=== PATIENT | female | born 2000 | race Caucasian/White ===

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

== ENCOUNTER 2022-09-12 18:59 | Emergency (ER) | payer SELFPAY ==
[~2022-09-12] VITALS: Ht 157.5 cm; Wt 70.1 kg
[~2022-09-12 18:59] MED LIST changes: +IBUP80TA PO; +OXYC1TAB23 PO
[2022-09-12 19:00] VITALS: BP 127/73
[2022-09-12 19:40] LABS: APPEARANCE, URINE MANUAL CLEAR (CLEAR); COLOR, URINE MANUAL YELLOW (YELLOW)
[2022-09-12 19:41] LABS: BILIRUBIN, URINE MANUAL NEGATIVE (NEGATIVE); GLUCOSE, URINE (UA) MANUAL NEGATIVE (NEGATIVE); KETONE, URINE MANUAL NEGATIVE (NEGATIVE); NITRITE, URINE MANUAL POSITIVE (NEGATIVE); PROTEIN, URINE MANUAL NEGATIVE (NEGATIVE); UROBILINOGEN, URINE MANUAL NORMAL (NORMAL)
[2022-09-12 19:42] LABS: BLOOD URINE MANUAL TRACE (NEGATIVE); LEUKOCYTE ESTERASE, URINE MAN POSITIVE (NEGATIVE)
[2022-09-12 19:49] LABS: BACTERIA, URINE LARGE AMOUNT; HYALINE CAST, URINE NONE SEEN /lpf (0-1); SQUAMOUS EPITHELIAL CELL URINE SMALL AMOUNT /hpf (SMALL AMT); WBC, URINE 20-30 /hpf (0-3)
[2022-09-12 19:51] LABS: TRANSITIONAL EPI CELLS, URINE SMALL AMOUNT /hpf
== END 2022-09-12 22:30 | disposition left against medical advice (07) ==
LOC: M ED 18:59
DX: Z53.21 Procedure and treatment not carried out due to patient leaving prior to being seen by health care provider (principal)

== ENCOUNTER 2023-04-05 15:06 | Emergency (ER) | payer SELFPAY ==
[~2023-04-05] VITALS: Ht 157.5 cm; Wt 79.1 kg
[2023-04-05 15:07] VITALS: BP 136/77; TEMP 97.3; O2SAT 98
== END 2023-04-05 16:00 | disposition left against medical advice (07) ==
LOC: M ED 15:06
DX: Z53.21 Procedure and treatment not carried out due to patient leaving prior to being seen by health care provider (principal)

== ENCOUNTER 2023-04-06 16:32 | Emergency (ER) | payer SELFPAY ==
[~2023-04-06] VITALS: Ht 157.5 cm; Wt 77.2 kg
[2023-04-06 16:34] VITALS: BP 124/75; TEMP 99.1
== END 2023-04-06 17:14 | disposition left against medical advice (07) ==
LOC: M ED 16:32
DX: Z53.21 Procedure and treatment not carried out due to patient leaving prior to being seen by health care provider (principal)

== ENCOUNTER 2023-04-08 11:12 | Observation (INO) | payer MEDICAID, SELFPAY ==
[~2023-04-08] VITALS: Ht 157.5 cm; Wt 78.0 kg
[2023-04-08 12:43] LABS: BASO # 0.1 10^3/uL (0.0-0.2); BASO % 0.5 % (0.0-1.0); EOS # 0.1 10^3/uL (0.0-0.5); EOS % 0.8 % (0.0-3.0); HEMATOCRIT 36.4 % (36.0-47.0); HEMOGLOBIN 12.3 g/dl (12.0-15.5); LYMPH # 1.7 10^3/uL (1.5-5.0); LYMPH % 11.6 % (24.0-44.0); MEAN CORPUSCULAR HEMOGLOBIN 30.1 pg (27.0-33.0); MEAN CORPUSCULAR HGB CONC 33.8 g/dl (32.0-36.5); MONO # 1.4 10^3/uL (0.0-0.8); MONO % 9.8 % (2.0-8.0); NEUTROPHILS # 11.1 10^3/uL (1.5-8.5); NEUTROPHILS % 76.6 % (36.0-66.0); PLATELET COUNT, AUTOMATED 229 10^3/uL (150-450); RED BLOOD COUNT 4.09 10^6/uL (4.00-5.40); WHITE BLOOD COUNT 14.4 10^3/uL (4.0-10.0)
[2023-04-08 12:55] LABS: INR 1.05; PROTHROMBIN TIME 13.4 SECONDS (12.5-14.5)
[2023-04-08] MEDS ORDERED: NS 1,000 ML IV ONE ×2 (12:55→15:05)
[2023-04-08 12:56] LABS: PARTIAL THROMBOPLASTIN TIME 25.8 SECONDS (24.8-34.2)
[2023-04-08 13:13] LABS: CK-MB VALUE MASS < 1.0 NG/ML (<3.6)
[2023-04-08 13:15] LABS: ALKALINE PHOSPHATASE 103 U/L (46-116); ALT/SGPT < 9 U/L (7.0-40); AST/SGOT < 8 U/L (<34); BILIRUBIN,DIRECT < 0.1 MG/DL (<0.4); BILIRUBIN,TOTAL 0.3 MG/DL (0.3-1.2); BLOOD UREA NITROGEN 8 MG/DL (9-23); CALCIUM LEVEL 9.1 MG/DL (8.5-10.1); CARBON DIOXIDE LEVEL 22 MMOL/L (20-31); CHLORIDE LEVEL 107 MMOL/L (98-107); CREATININE FOR GFR 0.43 MG/DL (0.55-1.30); GLOMERULAR FILTRATION RATE > 60.0 (>60); GLUCOSE, FASTING 109 MG/DL (60-100); MAGNESIUM LEVEL 1.7 MG/DL (1.8-2.4); POTASSIUM SERUM 3.7 MMOL/L (3.5-5.1); SODIUM LEVEL 139 MMOL/L (136-145); TOTAL PROTEIN 6.6 G/DL (5.7-8.2)
[2023-04-08 13:17] LABS: THYROID STIMULATING HORMONE 2.422 uIU/ML (0.55-4.78)
[2023-04-08 13:20] LABS: CPK CREATINE PHOSPHOKINASE 25 U/L (34-145); URIC ACID 4.9 MG/DL (3.1-7.8)
[2023-04-08] MEDS ORDERED: LIDOCAINE 2% 5ML JELLY UROJET TOP ONE (13:30)
[2023-04-08] MEDS ORDERED: MAG SULF 1GM/100ML (MAG RUN) 1 GM in IV 1 EA IV ONE (13:30)
[2023-04-08 14:20] LABS: CK-MB VALUE MASS < 1.0 NG/ML (<3.6)
[2023-04-08 14:23] LABS: CPK CREATINE PHOSPHOKINASE 19 U/L (34-145); MB/CK RELATIVE INDEX 5.26 (< OR =4)
[2023-04-08] MEDS ORDERED: cefTRIAXone SOD 1 GM in D5W MINI-BAG PLUS 50 ML IV ONE (14:45)
[2023-04-08] MEDS ORDERED: MED REC IN PROGRESS XX SCH (16:05)
[2023-04-08] MEDS ORDERED: HOME MED LIST COMPLETE! XX SCH (16:15)
[2023-04-08 17:05] LABS: GC DNA AMPLIFICATION NEGATIVE (NEGATIVE)
[2023-04-08] MEDS ORDERED: cefTRIAXone SOD 1GM VIAL IM SCH (17:10)
[2023-04-08] MEDS ORDERED: ACETAMINOPHEN TAB 650MG DOSE (2X325MG) PO PRN (17:10)
[2023-04-08] MEDS ORDERED: ONDANSETRON 4MG 2ML VIAL IV PRN (19:20)
[2023-04-08 20:42] VITALS: BP 115/68; TEMP 98.6; O2SAT 100
[2023-04-09] VITALS: BP 144/83; TEMP 96.8; O2SAT 97
[2023-04-09 04:50] VITALS: BP 118/75; TEMP 98.9; O2SAT 98
[2023-04-09] MEDS ORDERED: HEPARIN SOD (PORCINE) 5000UNITS/ML 1ML VIAL/SYRINGE SQ SCH (06:00)
[2023-04-09 07:45] LABS: BASO # 0.1 10^3/uL (0.0-0.2); BASO % 0.6 % (0.0-1.0); EOS # 0.2 10^3/uL (0.0-0.5); EOS % 2.4 % (0.0-3.0); HEMATOCRIT 32.2 % (36.0-47.0); HEMOGLOBIN 10.9 g/dl (12.0-15.5); LYMPH % 21.2 % (24.0-44.0); MEAN CORPUSCULAR HEMOGLOBIN 29.9 pg (27.0-33.0); MEAN CORPUSCULAR HGB CONC 33.9 g/dl (32.0-36.5); MEAN CORPUSCULAR VOLUME 88.5 fl (80.0-96.0); MONO # 1.2 10^3/uL (0.0-0.8); NEUTROPHILS # 5.9 10^3/uL (1.5-8.5); NEUTROPHILS % 62.2 % (36.0-66.0); PLATELET COUNT, AUTOMATED 217 10^3/uL (150-450); RED BLOOD COUNT 3.64 10^6/uL (4.00-5.40); WHITE BLOOD COUNT 9.4 10^3/uL (4.0-10.0)
[2023-04-09 08:25] LABS: ALBUMIN 2.4 G/DL (3.2-5.2); ALKALINE PHOSPHATASE 92 U/L (46-116); ALT/SGPT < 9 U/L (7.0-40); AST/SGOT < 8 U/L (<34); BILIRUBIN,TOTAL 0.3 MG/DL (0.3-1.2); BLOOD UREA NITROGEN 5 MG/DL (9-23); CALCIUM LEVEL 8.3 MG/DL (8.5-10.1); CARBON DIOXIDE LEVEL 20 MMOL/L (20-31); CHLORIDE LEVEL 110 MMOL/L (98-107); GLOMERULAR FILTRATION RATE > 60.0 (>60); GLUCOSE, FASTING 80 MG/DL (60-100); POTASSIUM SERUM 3.3 MMOL/L (3.5-5.1); SODIUM LEVEL 139 MMOL/L (136-145); TOTAL PROTEIN 5.4 G/DL (5.7-8.2)
[2023-04-09 08:30] VITALS: BP 116/76; TEMP 97; O2SAT 99
[2023-04-09 10:45] LABS: MAGNESIUM LEVEL 1.5 MG/DL (1.8-2.4)
[2023-04-09] MEDS ORDERED: POTASSIUM CHLORIDE 10MEQ SR TABLET PO ONE (11:00)
[2023-04-09] MEDS ORDERED: POTASSIUM CHLORIDE 10% LIQ 20MEQ/15ML UDC PO ONE (11:00)
[2023-04-09] MEDS ORDERED: CEFD300C41 PO (11:49)
[2023-04-09] MEDS ORDERED: MAGN500C2 PO (11:49)
[2023-04-09] MEDS ORDERED: MAG SULF 1GM/100ML (MAG RUN) 1 GM in IV 1 EA IV SCH (12:00)
[2023-04-09] MEDS ORDERED: cefTRIAXone SOD 1 GM in D5W MINI-BAG PLUS 50 ML IV SCH (15:00)
== END 2023-04-09 12:54 | disposition home or self-care (01) ==
LOC: M ED 11:12 → M ED INP 16:34 → INTOOBSV 16:34 → M PCU 20:38
PROVIDERS: ADMIT Internal Medicine; ATTEND Internal Medicine
DX: O23.32 Infections of other parts of urinary tract in pregnancy, second trimester (principal); O99.352 Diseases of the nervous system complicating pregnancy, second trimester; R55 Syncope and collapse; G25.3 Myoclonus; R25.3 Fasciculation; R41.82 Altered mental status, unspecified; O99.322 Drug use complicating pregnancy, second trimester; F12.20 Cannabis dependence, uncomplicated; Z82.49 Family history of ischemic heart disease and other diseases of the circulatory system; Z83.6 Family history of other diseases of the respiratory system; Z83.2 Family history of diseases of the blood and blood-forming organs and certain disorders involving the immune mechanism; Z87.440 Personal history of urinary (tract) infections; Z3A.18 18 weeks gestation of pregnancy
CPT/HCPCS: 36415; 71045; 76775; 76811; 80048; 80053; 80076; 81001; 82550; 82553; 83605; 83735; 83880; 84443; 84550; 85025; 85384; 85610; 85730; 86850; 86900; 86901; 87040; 87086; 87210; 87635; 87661; 87810; 87850; 93005; 93041; 94760; 96361; 96365; 96375; 99285; J0696; J2405; J3475

== ENCOUNTER → 2023-05-13 | Outpatient (CLI) | payer OTHER ==
[~2023-05-13] MED LIST changes: +CEFD300C41 PO; +MAGN500C2 PO
== END ==
LOC: M WHC 14:58
PROVIDERS: ATTEND Advanced Practice Midwife
DX: Z34.92 Encounter for supervision of normal pregnancy, unspecified, second trimester (principal)

== ENCOUNTER → 2023-06-16 | Outpatient (CLI) | payer OTHER, SELFPAY ==
[~2023-06-16] MED LIST changes: -CEFD300C41 PO; +CEFD300C42 PO
== END ==
LOC: M WHC 12:35
PROVIDERS: ATTEND Advanced Practice Midwife
DX: Z34.92 Encounter for supervision of normal pregnancy, unspecified, second trimester (principal)

== ENCOUNTER 2023-07-21 23:40 | Emergency (ER) | payer SELFPAY ==
[~2023-07-21] VITALS: Ht 157.5 cm; Wt 92.0 kg
[~2023-07-21 23:40] MED LIST changes: +CEFD1CAP9 PO; -CEFD300C42 PO
[2023-07-21 23:43] VITALS: BP 141/81; TEMP 97.9; O2SAT 97
== END 2023-07-21 23:45 | disposition admitted as inpatient to this hospital (09) ==
LOC: M ED 23:40
DX: Z53.21 Procedure and treatment not carried out due to patient leaving prior to being seen by health care provider (principal)

== ENCOUNTER 2023-11-19 06:26 | Emergency (ER) | payer SELFPAY ==
[~2023-11-19] VITALS: Ht 157.5 cm; Wt 79.6 kg
[2023-11-19] MEDS: NS 1,000 ML IV ONE (06:34)
[2023-11-19 06:58] LABS: BASO # 0.1 10^3/uL (0.0-0.2); BASO % 1.1 % (0.0-1.0); EOS # 0.2 10^3/uL (0.0-0.5); EOS % 2.5 % (0.0-3.0); HEMATOCRIT 43.7 % (36.0-47.0); HEMOGLOBIN 13.7 g/dl (12.0-15.5); LYMPH # 3.4 10^3/uL (1.5-5.0); LYMPH % 36.6 % (24.0-44.0); MEAN CORPUSCULAR HEMOGLOBIN 26.8 pg (27.0-33.0); MEAN CORPUSCULAR HGB CONC 31.4 g/dl (32.0-36.5); MEAN CORPUSCULAR VOLUME 85.5 fl (80.0-96.0); MONO # 0.8 10^3/uL (0.0-0.8); MONO % 9.1 % (2.0-8.0); NEUTROPHILS # 4.7 10^3/uL (1.5-8.5); NEUTROPHILS % 50.4 % (36.0-66.0); PLATELET COUNT, AUTOMATED 358 10^3/uL (150-450); RED BLOOD COUNT 5.11 10^6/uL (4.00-5.40); WHITE BLOOD COUNT 9.3 10^3/uL (4.0-10.0)
[2023-11-19 07:23] LABS: ALBUMIN 4.2 G/DL (3.2-5.2); ALKALINE PHOSPHATASE 110 U/L (46-116); ALT/SGPT 31 U/L (7.0-40); AST/SGOT 15 U/L (<34); BILIRUBIN,DIRECT 0.1 MG/DL (<0.4); BILIRUBIN,TOTAL 0.3 MG/DL (0.3-1.2); BLOOD UREA NITROGEN 7 MG/DL (9-23); CALCIUM LEVEL 9.6 MG/DL (8.5-10.1); CARBON DIOXIDE LEVEL 26 MMOL/L (20-31); CHLORIDE LEVEL 106 MMOL/L (98-107); CPK CREATINE PHOSPHOKINASE 103 U/L (34-145); CREATININE FOR GFR 0.55 MG/DL (0.55-1.30); GLOMERULAR FILTRATION RATE > 60.0 (>60); GLUCOSE, FASTING 96 MG/DL (60-100); POTASSIUM SERUM 3.9 MMOL/L (3.5-5.1); SALICYLATE LEVEL < 3.0 MG/DL (<30); SODIUM LEVEL 142 MMOL/L (136-145); TOTAL PROTEIN 7.8 G/DL (5.7-8.2)
[2023-11-19 07:47] LABS: HCG, SERUM QUALITATIVE NEGATIVE (NEGATIVE)
[2023-11-19] MEDS ORDERED: HOME MED LIST COMPLETE! XX SCH (10:30)
[2023-11-19 12:27] LABS: BARBITURATES URINE NEGATIVE (NEGATIVE); BENZODIAZEPINES URINE NEGATIVE (NEGATIVE); COCAINE METABOLITE URINE NEGATIVE (NEGATIVE); METHADONE URINE NEGATIVE (NEGATIVE); OPIATES URINE NEGATIVE (NEGATIVE); PHENCYCLIDINE URINE NEGATIVE (NEGATIVE)
[2023-11-19 12:31] LABS: AMPHETAMINES LEVEL URINE POSITIVE (NEGATIVE); CANNABINOIDS URINE POSITIVE (NEGATIVE)
[2023-11-19 12:48] VITALS: BP 108/68; TEMP 98.7; O2SAT 96
== END 2023-11-19 12:50 | disposition home or self-care (01) ==
LOC: EDBD 06:26 → M ED 09:26
DX: F10.120 Alcohol abuse with intoxication, uncomplicated (principal); F17.210 Nicotine dependence, cigarettes, uncomplicated; F12.10 Cannabis abuse, uncomplicated

== ENCOUNTER 2024-01-17 19:21 | Inpatient (IN) | payer SELFPAY ==
[~2024-01-17] VITALS: Ht 157.5 cm; Wt 78.5 kg
[2024-01-17 20:03] LABS: BASO # 0.1 10^3/uL (0.0-0.2); BASO % 0.5 % (0.0-1.0); EOS # 0.1 10^3/uL (0.0-0.5); EOS % 0.5 % (0.0-3.0); HEMATOCRIT 41.6 % (36.0-47.0); HEMOGLOBIN 13.4 g/dl (12.0-15.5); LYMPH # 2.2 10^3/uL (1.5-5.0); LYMPH % 12.4 % (24.0-44.0); MEAN CORPUSCULAR HEMOGLOBIN 27.1 pg (27.0-33.0); MEAN CORPUSCULAR HGB CONC 32.2 g/dl (32.0-36.5); MONO # 2.1 10^3/uL (0.0-0.8); MONO % 11.8 % (2.0-8.0); NEUTROPHILS # 13.2 10^3/uL (1.5-8.5); NEUTROPHILS % 74.4 % (36.0-66.0); PLATELET COUNT, AUTOMATED 306 10^3/uL (150-450); RED BLOOD COUNT 4.95 10^6/uL (4.00-5.40); WHITE BLOOD COUNT 17.8 10^3/uL (4.0-10.0)
[2024-01-17] MEDS: KETOROLAC 30 MG/ML 1ML VIAL IV ONE (20:16)
[2024-01-17] MEDS: NS 1,000 ML IV ONE (20:17)
[2024-01-17] MEDS: ONDANSETRON 4MG 2ML VIAL IV ONE (20:17)
[2024-01-17 20:26] LABS: ALBUMIN 3.8 G/DL (3.2-5.2); ALKALINE PHOSPHATASE 122 U/L (46-116); ALT/SGPT 16 U/L (7.0-40); AST/SGOT 25 U/L (<34); BILIRUBIN,TOTAL 0.5 MG/DL (0.3-1.2); BLOOD UREA NITROGEN 8 MG/DL (9-23); CALCIUM LEVEL 9.5 MG/DL (8.5-10.1); CARBON DIOXIDE LEVEL 25 MMOL/L (20-31); CHLORIDE LEVEL 104 MMOL/L (98-107); CREATININE FOR GFR 0.59 MG/DL (0.55-1.30); GLOMERULAR FILTRATION RATE > 60.0 (>60); GLUCOSE, FASTING 100 MG/DL (60-100); POTASSIUM SERUM 3.8 MMOL/L (3.5-5.1); SODIUM LEVEL 137 MMOL/L (136-145); TOTAL PROTEIN 7.6 G/DL (5.7-8.2)
[2024-01-17 20:30] LABS: HCG, SERUM QUALITATIVE NEGATIVE (NEGATIVE)
[2024-01-17] MEDS: cefTRIAXone SOD 1 GM in D5W MINI-BAG PLUS 50 ML IV ONE (20:34)
[2024-01-17] MEDS ORDERED: ISOVUE-370 76% 100ML VIAL As Ordered ONE (20:54)
[2024-01-17] MEDS: METOCLOPRAMIDE INJ 10MG/2ML VIAL IV ONE (22:27)
[2024-01-17] MEDS ORDERED: HOME MED LIST COMPLETE! XX SCH (23:15)
[2024-01-18] MEDS ORDERED: ONDANSETRON 4MG 2ML VIAL IV PRN
[2024-01-18] MEDS: NS 1,000 ML IV ONE ×2 (00:49→10:41)
[2024-01-18 01:30] VITALS: BP 99/58; TEMP 97.6; O2SAT 91
[2024-01-18] MEDS: ACETAMINOPHEN TAB 650MG DOSE (2X325MG) PO PRN (01:36)
[2024-01-18] MEDS ORDERED: KETOROLAC 30 MG/ML 1ML VIAL IV PRN (02:00)
[2024-01-18 04:30] VITALS: BP 96/47; TEMP 97.6; O2SAT 99
[2024-01-18 07:38] LABS: ALKALINE PHOSPHATASE 101 U/L (46-116); ALT/SGPT 19 U/L (7.0-40); AST/SGOT 19 U/L (<34); BILIRUBIN,TOTAL 0.5 MG/DL (0.3-1.2); BLOOD UREA NITROGEN 7 MG/DL (9-23); CALCIUM LEVEL 8.5 MG/DL (8.5-10.1); CARBON DIOXIDE LEVEL 26 MMOL/L (20-31); CHLORIDE LEVEL 110 MMOL/L (98-107); CREATININE FOR GFR 0.56 MG/DL (0.55-1.30); GLOMERULAR FILTRATION RATE > 60.0 (>60); GLUCOSE, FASTING 85 MG/DL (60-100); POTASSIUM SERUM 3.6 MMOL/L (3.5-5.1); PROCALCITONIN 0.07 ng/ml; SODIUM LEVEL 140 MMOL/L (136-145)
[2024-01-18] MEDS: DOCUSATE SODIUM 100MG CAPSULE PO SCH (09:00)
[2024-01-18] MEDS: cefTRIAXone SOD 2 GM in D5W MINI-BAG PLUS 50 ML IV SCH (09:13)
[2024-01-18 10:41] VITALS: BP 90/55
[2024-01-18] MEDS: MIDODRINE 5 MG TAB PO ONE (10:41)
[2024-01-18] MEDS: KETOROLAC 30 MG/ML 1ML VIAL IV ONE (10:41)
[2024-01-18 11:39] LABS: BASO # 0.1 10^3/uL (0.0-0.2); BASO % 0.5 % (0.0-1.0); EOS # 0.2 10^3/uL (0.0-0.5); EOS % 1.5 % (0.0-3.0); HEMATOCRIT 37.3 % (36.0-47.0); HEMOGLOBIN 11.6 g/dl (12.0-15.5); LYMPH # 3.3 10^3/uL (1.5-5.0); LYMPH % 21.7 % (24.0-44.0); MEAN CORPUSCULAR HEMOGLOBIN 27.3 pg (27.0-33.0); MEAN CORPUSCULAR HGB CONC 31.1 g/dl (32.0-36.5); MEAN CORPUSCULAR VOLUME 87.8 fl (80.0-96.0); MONO # 2.3 10^3/uL (0.0-0.8); MONO % 15.2 % (2.0-8.0); NEUTROPHILS # 9.1 10^3/uL (1.5-8.5); NEUTROPHILS % 60.6 % (36.0-66.0); PLATELET COUNT, AUTOMATED 261 10^3/uL (150-450); RED BLOOD COUNT 4.25 10^6/uL (4.00-5.40); WHITE BLOOD COUNT 15.1 10^3/uL (4.0-10.0)
[2024-01-18 11:54] VITALS: BP_SYST 106; BP_SYST 107; BP_SYST 116; BP_DIAS 62; BP_DIAS 66; BP_DIAS 71
[2024-01-18 12:00] VITALS: BP 116/62; TEMP 98.1; O2SAT 99
[2024-01-18 12:04] LABS: ERYTHROCYTE SEDIMENTATION RATE 42 mm/hr (0-20)
[2024-01-18 12:52] LABS: PROLACTIN 13.26 NG/ML
[2024-01-18] MEDS: ACETAMINOPHEN 500 MG TAB PO ONE (14:00)
[2024-01-18] MEDS ORDERED: LEVO1TAB40 PO (14:58)
[2024-01-18] MEDS ORDERED: PYRI1TAB5 PO (15:00)
[2024-01-18] MEDS ORDERED: MIDO10TA PO (15:00)
[2024-01-18] MEDS ORDERED: SELF1KIT MC (15:00)
[2024-01-18] MEDS ORDERED: FOSFOMYCIN TROMETHAMINE 3 GM POWDER PACKET (MONUROL) PO ONE (16:00)
[2024-01-18] MEDS ORDERED: MIDODRINE 5 MG TAB PO SCH (16:00)
== END 2024-01-18 15:03 | disposition left against medical advice (07) | DRG 720 ==
LOC: M ED 19:21 → M ED INP 23:16 → M MSPAV 01-18 01:11
PROVIDERS: ADMIT Preventive Medicine Undersea and Hyperbaric Medicine; ATTEND General Practice
DX: A41.9 Sepsis, unspecified organism (principal); N10 Acute pyelonephritis; N83.201 Unspecified ovarian cyst, right side; F41.9 Anxiety disorder, unspecified; F31.9 Bipolar disorder, unspecified; Z91.198 Patient's noncompliance with other medical treatment and regimen for other reason

== ENCOUNTER 2024-02-27 00:15 | Emergency (ER) | payer SELFPAY ==
[~2024-02-27] VITALS: Ht 162.6 cm; Wt 77.3 kg
[~2024-02-27 00:15] MED LIST changes: +LEVO1TAB40 PO; +MIDO10TA PO; +PYRI1TAB5 PO; +SELF1KIT MC
[2024-02-27 00:16] VITALS: BP 108/68; TEMP 96.8; O2SAT 100
== END 2024-02-27 02:09 | disposition left against medical advice (07) ==
LOC: M ED 00:15
DX: Z53.21 Procedure and treatment not carried out due to patient leaving prior to being seen by health care provider (principal)

== ENCOUNTER 2024-03-07 18:22 | Emergency (ER) | payer SELFPAY ==
[~2024-03-07] VITALS: Ht 157.5 cm; Wt 77.8 kg
[2024-03-07 18:23] VITALS: TEMP 97.5
[2024-03-07] MEDS: NS 1,000 ML IV ONE (19:24)
[2024-03-07 19:31] LABS: BASO # 0.1 10^3/uL (0.0-0.2); BASO % 0.7 % (0.0-1.0); EOS # 0.2 10^3/uL (0.0-0.5); EOS % 1.9 % (0.0-3.0); HEMATOCRIT 42.9 % (36.0-47.0); LYMPH # 4.1 10^3/uL (1.5-5.0); LYMPH % 33.8 % (24.0-44.0); MEAN CORPUSCULAR HEMOGLOBIN 28.4 pg (27.0-33.0); MEAN CORPUSCULAR HGB CONC 32.6 g/dl (32.0-36.5); MONO # 1.1 10^3/uL (0.0-0.8); MONO % 8.7 % (2.0-8.0); NEUTROPHILS # 6.6 10^3/uL (1.5-8.5); NEUTROPHILS % 54.6 % (36.0-66.0); PLATELET COUNT, AUTOMATED 349 10^3/uL (150-450); RED BLOOD COUNT 4.93 10^6/uL (4.00-5.40); WHITE BLOOD COUNT 12.1 10^3/uL (4.0-10.0)
[2024-03-07 19:33] LABS: BARBITURATES URINE NEGATIVE (NEGATIVE); BENZODIAZEPINES URINE NEGATIVE (NEGATIVE); COCAINE METABOLITE URINE NEGATIVE (NEGATIVE); PHENCYCLIDINE URINE NEGATIVE (NEGATIVE)
[2024-03-07 19:34] LABS: AMPHETAMINES LEVEL URINE POSITIVE (NEGATIVE); CANNABINOIDS URINE POSITIVE (NEGATIVE); METHADONE URINE NEGATIVE (NEGATIVE); OPIATES URINE NEGATIVE (NEGATIVE)
[2024-03-07 19:36] LABS: BLOOD UREA NITROGEN 11 MG/DL (9-23); CALCIUM LEVEL 9.5 MG/DL (8.5-10.1); CARBON DIOXIDE LEVEL 27 MMOL/L (20-31); CHLORIDE LEVEL 107 MMOL/L (98-107); CREATININE FOR GFR 0.58 MG/DL (0.55-1.30); GLOMERULAR FILTRATION RATE > 60.0 (>60); GLUCOSE, FASTING 81 MG/DL (60-100); POTASSIUM SERUM 4.2 MMOL/L (3.5-5.1); SODIUM LEVEL 140 MMOL/L (136-145)
[2024-03-07 19:49] LABS: HCG, SERUM QUALITATIVE NEGATIVE (NEGATIVE)
[2024-03-07] MEDS: cefTRIAXone SOD 1 GM in D5W MINI-BAG PLUS 50 ML IV ONE (20:00)
[2024-03-07 20:09] LABS: HIV 1&2 SCREEN NEGATIVE (NEGATIVE)
[2024-03-07 21:31] VITALS: BP 98/57; O2SAT 99
[2024-03-07 21:42] LABS: Trichomonas vaginalis (AMP) NOT DETECTED (NEGATIVE)
[2024-03-07 22:06] LABS: GC DNA AMPLIFICATION NEGATIVE (NEGATIVE)
[2024-03-07] MEDS ORDERED: CIPR-249 PO (22:31)
== END 2024-03-07 22:45 | disposition home or self-care (01) ==
LOC: M ED 18:22
DX: N39.0 Urinary tract infection, site not specified (principal); M95.2 Other acquired deformity of head; Z79.2 Long term (current) use of antibiotics
CPT/HCPCS: 70450; 76775; 80048; 80307; 81001; 84703; 85025; 86780; 87086; 87389; 87661; 87810; 87850; 96361; 96374; 99283; J0696

== ENCOUNTER 2024-06-11 14:14 | Emergency (ER) | payer SELFPAY ==
[~2024-06-11] VITALS: Ht 157.5 cm; Wt 87.9 kg
[~2024-06-11 14:14] MED LIST changes: +CIPR-249 PO; -MIDO10TA PO; +MIDO10TA3 PO
[2024-06-11 15:43] LABS: BASO # 0.1 10^3/uL (0.0-0.2); BASO % 0.4 % (0.0-1.0); EOS # 0.2 10^3/uL (0.0-0.5); EOS % 1.7 % (0.0-3.0); HEMATOCRIT 39.9 % (36.0-47.0); HEMOGLOBIN 12.9 g/dl (12.0-15.5); LYMPH % 29.5 % (24.0-44.0); MEAN CORPUSCULAR HEMOGLOBIN 28.4 pg (27.0-33.0); MEAN CORPUSCULAR HGB CONC 32.3 g/dl (32.0-36.5); MEAN CORPUSCULAR VOLUME 87.7 fl (80.0-96.0); MONO % 7.1 % (2.0-8.0); NEUTROPHILS # 8.2 10^3/uL (1.5-8.5); NEUTROPHILS % 60.9 % (36.0-66.0); PLATELET COUNT, AUTOMATED 335 10^3/uL (150-450); RED BLOOD COUNT 4.55 10^6/uL (4.00-5.40); WHITE BLOOD COUNT 13.5 10^3/uL (4.0-10.0)
[2024-06-11 16:11] LABS: LIPASE 40 U/L (12-53)
[2024-06-11 16:13] LABS: ALBUMIN 3.5 G/DL (3.2-5.2); ALKALINE PHOSPHATASE 102 U/L (35-104); ALT/SGPT 12 U/L (7.0-40); AST/SGOT < 8 U/L (<34); BILIRUBIN,DIRECT < 0.1 MG/DL (<0.4); BILIRUBIN,TOTAL 0.2 MG/DL (0.3-1.2); BLOOD UREA NITROGEN 13 MG/DL (9-23); CALCIUM LEVEL 9.6 MG/DL (8.5-10.1); CARBON DIOXIDE LEVEL 26 MMOL/L (20-31); CHLORIDE LEVEL 108 MMOL/L (98-107); CREATININE FOR GFR 0.55 MG/DL (0.55-1.30); GLOMERULAR FILTRATION RATE > 60.0 (>60); GLUCOSE, FASTING 88 MG/DL (60-100); POTASSIUM SERUM 4.3 MMOL/L (3.5-5.1); SODIUM LEVEL 140 MMOL/L (136-145); TOTAL PROTEIN 6.9 G/DL (5.7-8.2)
[2024-06-11 16:42] LABS: HCG, SERUM QUALITATIVE NEGATIVE (NEGATIVE)
[2024-06-11] MEDS ORDERED: CEFD1CAP9 PO (18:02)
[2024-06-11] MEDS ORDERED: PYRI1TAB5 PO (18:03)
[2024-06-11 18:24] VITALS: BP 122/60; TEMP 98.6; O2SAT 96
== END 2024-06-11 18:24 | disposition home or self-care (01) ==
LOC: M ED 14:14
DX: N30.00 Acute cystitis without hematuria (principal); Z87.891 Personal history of nicotine dependence; Z79.2 Long term (current) use of antibiotics; Z79.899 Other long term (current) drug therapy

== ENCOUNTER 2024-06-16 20:36 | Emergency (ER) | payer SELFPAY ==
[~2024-06-16] VITALS: Ht 157.5 cm; Wt 88.0 kg
[2024-06-16 20:40] VITALS: BP 123/87; TEMP 97.2; O2SAT 98
== END 2024-06-16 21:05 | disposition left against medical advice (07) ==
LOC: M ED 20:36
DX: Z53.21 Procedure and treatment not carried out due to patient leaving prior to being seen by health care provider (principal)

== ENCOUNTER 2024-06-17 10:14 | Emergency (ER) | payer SELFPAY ==
[~2024-06-17] VITALS: Ht 157.5 cm; Wt 87.5 kg
[2024-06-17 10:20] VITALS: BP 133/94; TEMP 97.5; O2SAT 98
[2024-06-17 11:50] LABS: HCG, SERUM QUALITATIVE NEGATIVE (NEGATIVE)
== END 2024-06-17 12:29 | disposition home or self-care (01) ==
LOC: M ED 10:14
DX: Z32.00 Encounter for pregnancy test, result unknown (principal); G40.89 Other seizures; F31.9 Bipolar disorder, unspecified

== ENCOUNTER → 2024-06-27 | Outpatient (REF) | LOC: M LAB 14:05 | PROVIDERS: ATTEND Family Medicine | DX: Z00.00 Encounter for general adult medical examination without abnormal findings (principal) ==

== ENCOUNTER → 2024-07-09 | Outpatient (REF) | LOC: M EMP 10:10 | PROVIDERS: ATTEND Family Medicine | DX: Z11.52 Encounter for screening for COVID-19 (principal) ==

== ENCOUNTER 2024-09-15 16:37 | Emergency (ER) | payer SELFPAY ==
[~2024-09-15] VITALS: Ht 157.5 cm; Wt 89.5 kg
[2024-09-15 17:23] LABS: KETONE, URINE AUTO RFX TRACE mg/dL (NEGATIVE); LEUKOCYTE ESTERASE UR AUTO RFX TRACE (NEGATIVE); MUCUS, URINE RFX SMALL (NEGATIVE); NITRITE, URINE AUTO RFX NEGATIVE (NEGATIVE); RBC, URINE AUTO RFX 3 /HPF (0-3); SQUAM EPITHELIAL CELL UR AURFX 91 /HPF (0-6); WBC, URINE AUTO RFX 7 /HPF (0-3)
[2024-09-15 17:28] LABS: BASO # 0.1 10^3/uL (0.0-0.2); BASO % 0.8 % (0.0-1.0); EOS # 0.3 10^3/uL (0.0-0.5); EOS % 1.9 % (0.0-3.0); HEMATOCRIT 42.2 % (36.0-47.0); HEMOGLOBIN 13.9 g/dl (12.0-15.5); LYMPH # 4.8 10^3/uL (1.5-5.0); LYMPH % 36.7 % (24.0-44.0); MEAN CORPUSCULAR HEMOGLOBIN 28.7 pg (27.0-33.0); MEAN CORPUSCULAR HGB CONC 32.9 g/dl (32.0-36.5); MEAN CORPUSCULAR VOLUME 87.2 fl (80.0-96.0); MONO # 1.1 10^3/uL (0.0-0.8); MONO % 8.6 % (2.0-8.0); NEUTROPHILS # 6.7 10^3/uL (1.5-8.5); NEUTROPHILS % 51.6 % (36.0-66.0); PLATELET COUNT, AUTOMATED 301 10^3/uL (150-450); RED BLOOD COUNT 4.84 10^6/uL (4.00-5.40)
[2024-09-15 17:33] LABS: HCG, SERUM QUANTITATIVE 7.3 MIU/ML (<4.2)
[2024-09-15 17:34] LABS: BLOOD UREA NITROGEN 15 MG/DL (9-23); CALCIUM LEVEL 9.6 MG/DL (8.5-10.1); CARBON DIOXIDE LEVEL 26 MMOL/L (20-31); CHLORIDE LEVEL 106 MMOL/L (98-107); CREATININE FOR GFR 0.64 MG/DL (0.55-1.30); GLOMERULAR FILTRATION RATE > 60.0 (>60); GLUCOSE, FASTING 92 MG/DL (60-100); POTASSIUM SERUM 3.8 MMOL/L (3.5-5.1); SODIUM LEVEL 141 MMOL/L (136-145)
[2024-09-15] MEDS: CEPHALEXIN 500 MG CAP PO ONE (18:16)
[2024-09-15 18:51] LABS: BARBITURATES URINE NEGATIVE (NEGATIVE); BENZODIAZEPINES URINE NEGATIVE (NEGATIVE); COCAINE METABOLITE URINE NEGATIVE (NEGATIVE); METHADONE URINE NEGATIVE (NEGATIVE); OPIATES URINE NEGATIVE (NEGATIVE)
[2024-09-15 18:52] LABS: AMPHETAMINES LEVEL URINE POSITIVE (NEGATIVE); CANNABINOIDS URINE POSITIVE (NEGATIVE); PHENCYCLIDINE URINE NEGATIVE (NEGATIVE)
[2024-09-15] MEDS: ACETAMINOPHEN 500 MG TAB PO ONE (19:07)
[2024-09-15] MEDS ORDERED: CEPH500C PO (19:09)
[2024-09-15 19:34] VITALS: BP 120/75; TEMP 97.8; O2SAT 99
[2024-09-15 19:47] LABS: Trichomonas vaginalis (AMP) NOT DETECTED (NEGATIVE)
[2024-09-15 20:11] LABS: GC DNA AMPLIFICATION NEGATIVE (NEGATIVE)
== END 2024-09-15 19:36 | disposition home or self-care (01) ==
LOC: M ED 16:37
DX: N39.0 Urinary tract infection, site not specified (principal); Z32.01 Encounter for pregnancy test, result positive; F12.10 Cannabis abuse, uncomplicated; Z79.2 Long term (current) use of antibiotics

== ENCOUNTER 2024-09-30 20:42 | Emergency (ER) | payer MEDICAID, SELFPAY ==
[~2024-09-30] VITALS: Ht 157.5 cm; Wt 94.8 kg
[~2024-09-30 20:42] MED LIST changes: +CEPH500C PO
[2024-09-30 20:47] VITALS: BP 168/88; TEMP 97.2; O2SAT 98
[2024-09-30 21:17] LABS: HEMATOCRIT 39.4 % (36.0-47.0); HEMOGLOBIN 12.5 g/dl (12.0-15.5); MEAN CORPUSCULAR HEMOGLOBIN 28.1 pg (27.0-33.0); MEAN CORPUSCULAR HGB CONC 31.7 g/dl (32.0-36.5); MEAN CORPUSCULAR VOLUME 88.5 fl (80.0-96.0); PLATELET COUNT, AUTOMATED 357 10^3/uL (150-450); RED BLOOD COUNT 4.45 10^6/uL (4.00-5.40)
[2024-09-30 21:37] LABS: BASOPHILS 2 % (0-1); LYMPHOCYTES 33 % (16-44); MONOCYTES 5 % (0-5); NEUTROPHILS 60 % (28-66); PLATELET ESTIMATE NORMAL (NORMAL)
[2024-09-30 21:46] LABS: BLOOD UREA NITROGEN 14 MG/DL (9-23); CARBON DIOXIDE LEVEL 28 MMOL/L (20-31); CHLORIDE LEVEL 103 MMOL/L (98-107); CREATININE FOR GFR 0.68 MG/DL (0.55-1.30); GLOMERULAR FILTRATION RATE > 60.0 (>60); GLUCOSE, FASTING 94 MG/DL (60-100); HCG, SERUM QUANTITATIVE 318.3 MIU/ML (<4.2); POTASSIUM SERUM 3.8 MMOL/L (3.5-5.1); SODIUM LEVEL 139 MMOL/L (136-145)
== END 2024-09-30 23:10 | disposition left against medical advice (07) ==
LOC: M ED 20:42
DX: Z53.21 Procedure and treatment not carried out due to patient leaving prior to being seen by health care provider (principal)

== ENCOUNTER → 2024-10-02 | Outpatient (CLI) | payer MEDICAID | LOC: M PLALAB 14:19 | PROVIDERS: ATTEND Advanced Practice Midwife | DX: O20.9 Hemorrhage in early pregnancy, unspecified (principal) ==

== ENCOUNTER → 2025-02-06 | Outpatient (REF) | payer OTHER | LOC: M PLALAB 08:36 | PROVIDERS: ATTEND Nurse Practitioner Family | DX: Z34.80 Encounter for supervision of other normal pregnancy, unspecified trimester (principal); Z53.9 Procedure and treatment not carried out, unspecified reason ==

== ENCOUNTER 2025-02-22 15:57 | Emergency (ER) | payer OTHER ==
[~2025-02-22] VITALS: Ht 152.4 cm; Wt 90.0 kg
[2025-02-22] MEDS ORDERED: ONDA-83 (16:05)
[2025-02-22 16:59] LABS: KETONE, URINE AUTO RFX 2+ mg/dL (NEGATIVE); LEUKOCYTE ESTERASE UR AUTO RFX NEGATIVE (NEGATIVE); MUCUS, URINE RFX MODERATE (NEGATIVE); NITRITE, URINE AUTO RFX NEGATIVE (NEGATIVE); RBC, URINE AUTO RFX 1 /HPF (0-3); SQUAM EPITHELIAL CELL UR AURFX 15 /HPF (0-6); WBC, URINE AUTO RFX 2 /HPF (0-3)
[2025-02-22 17:52] LABS: BASO # 0.1 10^3/uL (0.0-0.2); BASO % 0.4 % (0.0-1.0); EOS # 0.2 10^3/uL (0.0-0.5); EOS % 1.2 % (0.0-3.0); LYMPH # 3.4 10^3/uL (1.5-5.0); LYMPH % 23.7 % (24.0-44.0); MONO # 0.9 10^3/uL (0.0-0.8); MONO % 6.0 % (2.0-8.0); NEUTROPHILS # 9.7 10^3/uL (1.5-8.5); NEUTROPHILS % 68.3 % (36.0-66.0); PLATELET COUNT, AUTOMATED 286 10^3/uL (150-450)
[2025-02-22 18:09] LABS: ALT/SGPT 15 U/L (7.0-40); AST/SGOT 14 U/L (<34); CALCIUM LEVEL 9.3 MG/DL (8.5-10.1); CARBON DIOXIDE LEVEL 24 MMOL/L (20-31); CHLORIDE LEVEL 104 MMOL/L (98-107); CREATININE FOR GFR 0.86 MG/DL (0.55-1.30); GLOMERULAR FILTRATION RATE > 90.0 (>60); POTASSIUM SERUM 3.8 MMOL/L (3.5-5.1); SODIUM LEVEL 140 MMOL/L (136-145)
[2025-02-22 18:36] VITALS: TEMP 99.8
[2025-02-22 18:39] LABS: HCG, SERUM QUANTITATIVE 126518.7 MIU/ML (<4.2)
[2025-02-22] MEDS: NS (Normal Saline) 0.9% 1,000 ML IV ONE (19:25)
[2025-02-22] MEDS: ONDANSETRON 4MG 2ML VIAL IV ONE (19:45)
[2025-02-22] MEDS ORDERED: ONDA-282 PO (20:55)
[2025-02-22 20:56] VITALS: BP 128/71; O2SAT 98
[2025-02-22 22:26] LABS: Trichomonas vaginalis (AMP) NOT DETECTED (NEGATIVE)
[2025-02-22 22:49] LABS: GC DNA AMPLIFICATION NEGATIVE (NEGATIVE)
== END 2025-02-22 21:08 | disposition home or self-care (01) ==
LOC: M ED 15:57
DX: J06.9 Acute upper respiratory infection, unspecified (principal); Z79.899 Other long term (current) drug therapy
CPT/HCPCS: 80048; 80076; 81001; 83690; 84702; 85025; 87486; 87581; 87633; 87661; 87798; 87810; 87850; 96374; 99284; J2405

== ENCOUNTER → 2025-03-21 | Outpatient (CLI) | payer OTHER ==
[~2025-03-21] MED LIST changes: +ONDA-282 PO; +ONDA-83
== END ==
LOC: M PLALAB 07:58
PROVIDERS: ATTEND Obstetrics & Gynecology
DX: Z34.80 Encounter for supervision of other normal pregnancy, unspecified trimester (principal)

== ENCOUNTER → 2025-03-21 | Outpatient (CLI) | payer OTHER ==
[2025-03-21 11:52] LABS: TOTAL PROTEIN,RANDOM URINE 18.5 MG/DL (0.0-14.0)
[2025-03-21 12:25] LABS: Trichomonas vaginalis (AMP) NOT DETECTED (NEGATIVE)
[2025-03-21 12:48] LABS: GC DNA AMPLIFICATION NEGATIVE (NEGATIVE)
== END ==
LOC: M PLALAB 08:00
PROVIDERS: ATTEND Nurse Practitioner Family
DX: Z34.80 Encounter for supervision of other normal pregnancy, unspecified trimester (principal)

== ENCOUNTER 2025-04-18 11:34 | Emergency (ER) | payer OTHER ==
[~2025-04-18] VITALS: Ht 157.5 cm; Wt 88.9 kg
[2025-04-18 12:11] LABS: BASO # 0.1 10^3/uL (0.0-0.2); BASO % 0.7 % (0.0-1.0); EOS # 0.2 10^3/uL (0.0-0.5); EOS % 1.7 % (0.0-3.0); LYMPH # 2.0 10^3/uL (1.5-5.0); LYMPH % 15.5 % (24.0-44.0); MONO # 1.1 10^3/uL (0.0-0.8); MONO % 8.3 % (2.0-8.0); NEUTROPHILS # 9.5 10^3/uL (1.5-8.5); NEUTROPHILS % 73.3 % (36.0-66.0); PLATELET COUNT, AUTOMATED 260 10^3/uL (150-450)
[2025-04-18 12:14] LABS: KETONE, URINE AUTO RFX 2+ mg/dL (NEGATIVE); LEUKOCYTE ESTERASE UR AUTO RFX NEGATIVE (NEGATIVE); MUCUS, URINE RFX SMALL (NEGATIVE); NITRITE, URINE AUTO RFX NEGATIVE (NEGATIVE); RBC, URINE AUTO RFX 1 /HPF (0-3); SQUAM EPITHELIAL CELL UR AURFX 15 /HPF (0-6); WBC, URINE AUTO RFX 4 /HPF (0-3)
[2025-04-18 12:38] LABS: ALT/SGPT 12 U/L (7.0-40); AST/SGOT 13 U/L (<34); CALCIUM LEVEL 8.9 MG/DL (8.5-10.1); CARBON DIOXIDE LEVEL 22 MMOL/L (20-31); CHLORIDE LEVEL 104 MMOL/L (98-107); CREATININE FOR GFR 0.44 MG/DL (0.55-1.30); GLOMERULAR FILTRATION RATE > 90.0 (>60); POTASSIUM SERUM 3.6 MMOL/L (3.5-5.1); SODIUM LEVEL 138 MMOL/L (136-145)
[2025-04-18] MEDS ORDERED: ONDANSETRON 4MG 2ML VIAL IV ONE (13:10)
[2025-04-18 13:47] VITALS: BP 117/68; TEMP 96.7; O2SAT 99
== END 2025-04-18 14:35 | disposition left against medical advice (07) ==
LOC: M ED 11:34
DX: Z53.21 Procedure and treatment not carried out due to patient leaving prior to being seen by health care provider (principal)

== ENCOUNTER → 2025-04-30 | Outpatient (REF) | LOC: M LAB REF 21:18 | DX: Z00.00 Encounter for general adult medical examination without abnormal findings (principal) ==

== ENCOUNTER → 2025-05-15 | Outpatient (CLI) | payer OTHER | LOC: M RAD 13:26 | PROVIDERS: ATTEND Student in an Organized Health Care Education/Training Program | DX: O30.042 Twin pregnancy, dichorionic/diamniotic, second trimester (principal); O32.1XX1 Maternal care for breech presentation, fetus 1; Z3A.23 23 weeks gestation of pregnancy ==

== ENCOUNTER 2025-06-07 07:51 | Emergency (ER) | payer OTHER | END 2025-06-07 08:26 | disposition admitted as inpatient to this hospital (09) | LOC: M ED 07:54 | DX: Z53.21 Procedure and treatment not carried out due to patient leaving prior to being seen by health care provider (principal) ==

== ENCOUNTER 2025-06-07 07:58 | Outpatient (CLI) | payer OTHER ==
[~2025-06-07] VITALS: Ht 157.5 cm; Wt 92.5 kg
[2025-06-07] MEDS ORDERED: HOME MED LIST COMPLETE! XX SCH (08:15)
[2025-06-07 08:25] VITALS: BP 105/59
[2025-06-07 08:56] VITALS: BP 130/58
[2025-06-07 09:26] VITALS: BP 101/71
== END 2025-06-07 10:00 | disposition home or self-care (01) ==
LOC: M LDO 07:58
PROVIDERS: ATTEND Advanced Practice Midwife
DX: O99.612 Diseases of the digestive system complicating pregnancy, second trimester (principal); O21.0 Mild hyperemesis gravidarum; O30.042 Twin pregnancy, dichorionic/diamniotic, second trimester; O99.322 Drug use complicating pregnancy, second trimester; O26.22 Pregnancy care for patient with recurrent pregnancy loss, second trimester; K59.00 Constipation, unspecified; F12.90 Cannabis use, unspecified, uncomplicated; Z3A.25 25 weeks gestation of pregnancy
CPT/HCPCS: 59025; G0463

== ENCOUNTER → 2025-07-12 | Outpatient (CLI) | payer OTHER | LOC: M RAD 14:55 | PROVIDERS: ATTEND Student in an Organized Health Care Education/Training Program | DX: O30.042 Twin pregnancy, dichorionic/diamniotic, second trimester (principal) ==

== ENCOUNTER → 2025-07-30 | Outpatient (CLI) | payer OTHER | LOC: M RAD 14:30 | PROVIDERS: ATTEND Obstetrics & Gynecology | DX: O30.043 Twin pregnancy, dichorionic/diamniotic, third trimester (principal); Z3A.33 33 weeks gestation of pregnancy ==